=== PATIENT | female | born 1975 | race Caucasian/White ===

== ENCOUNTER 2016-09-21 08:11 | Inpatient (IN) | payer OTHER ==
[~2016-09-21] VITALS: Ht 157.5 cm; Wt 134.5 kg
[~2016-09-21 08:11] MED LIST: ENDOCET 5-3251 EACH PO; IBUPROFEN800 MG PO; LABETALOL HCL200 MG PO; NOHOMEMEDS; PRENATAL TABLE1 EAC3 PO
[2016-09-21 09:22] LABS: EOSINOPHIL (%) 1.1 % (0-5); EOSINOPHIL COUNT 0.1 K/uL (0-0.3); HEMATOCRIT 42.3 % (36.0-46.0); IMMATURE GRANULOCYTE (%) 0.4 % (0.0-0.7); INSTRUMENT ABS NEUTROPHIL CT 7.5 K/uL; LYMPHOCYTE COUNT 1.1 K/uL (1.0-2.8); MCH 30.6 PG (29.0-34.0); MCHC 32.2 G/DL (30.0-36.0); MCV 95.3 FL (83-99); MEAN PLAT.VOLUME 11.9 uM^3 (9.5-12.4); MONOCYTE COUNT 0.5 K/uL (0-0.8); NEUTROPHIL COUNT 7.5 K/uL (1.8-6.4); PLATELET COUNT 184 K/uL (156-360); RBC DIS.WIDTH-CV 12.8 % (11.8-14.6); RBC DIS.WIDTH-SD 45.4 % (39-53); RED BLOOD COUNT 4.44 M/uL (3.80-5.20); WHITE BLOOD COUNT 9.3 K/uL (4.1-10.2)
[2016-09-21 09:34] LABS: D-DIMER ELISA 3.77 mg/L FEU (< 0.57); INTER. NORMALIZED RATIO 1.1; PROTHROMBIN TIME 10.8 (9.2-11.2); PTT 36.2 (25-32)
[2016-09-21 09:41] LABS: CHLORIDE 105 mEq/L (99-109); POTASSIUM 3.8 mEq/L (3.7-5.4); SODIUM 137 mEq/L (136-147)
[2016-09-21 09:43] LABS: GLUCOSE 125 mg/dL (70-99)
[2016-09-21 09:45] LABS: ANION GAP 10 MEQ/L (2-14)
[2016-09-21 09:47] LABS: GFR ESTIMATE (CALCULATED) > 59 mL/min/
[2016-09-21 09:48] LABS: UREA NITROGEN (BUN) 8 mg/dL (9-23)
[2016-09-21 09:51] LABS: TROP-I INTERPRETATION NEGATIVE; TROPONIN-I 0.08 ng/mL (0.0-0.30)
[2016-09-21] MEDS ORDERED: PROAIR HFA8.5 GM IH (12:29)
[2016-09-21 14:31] VITALS: BP 141/77
[2016-09-22 01:00] VITALS: BP 127/87
[2016-09-22 04:00] VITALS: BP 134/86
[2016-09-22 07:24] LABS: EOSINOPHIL (%) 1.1 % (0-5); EOSINOPHIL COUNT 0.1 K/uL (0-0.3); HEMATOCRIT 41.6 % (36.0-46.0); IMMATURE GRANULOCYTE (%) 0.4 % (0.0-0.7); INSTRUMENT ABS NEUTROPHIL CT 4.6 K/uL; LYMPHOCYTE COUNT 2.3 K/uL (1.0-2.8); MCH 29.9 PG (29.0-34.0); MCHC 31.5 G/DL (30.0-36.0); MONOCYTE COUNT 0.5 K/uL (0-0.8); NEUTROPHIL (%) 61.4 % (45-76); NEUTROPHIL COUNT 4.6 K/uL (1.8-6.4); PLATELET COUNT 193 K/uL (156-360); RBC DIS.WIDTH-CV 13.2 % (11.8-14.6); RBC DIS.WIDTH-SD 46.6 % (39-53); RED BLOOD COUNT 4.38 M/uL (3.80-5.20); WHITE BLOOD COUNT 7.5 K/uL (4.1-10.2)
[2016-09-22 07:35] VITALS: BP 121/73
[2016-09-22 07:43] LABS: INTER. NORMALIZED RATIO 1.1; PROTHROMBIN TIME 11.1 (9.2-11.2); PTT 54.8 (25-32)
[2016-09-22 07:48] LABS: ANION GAP 9 MEQ/L (2-14); CHLORIDE 105 MEQ/L (99-109); GFR ESTIMATE (CALCULATED) > 59 mL/min/; GLUCOSE 109 mg/dL (70-99); POTASSIUM 3.9 MEQ/L (3.7-5.4); SAMPLE HEMOLYSIS CHECK 0; SAMPLE ICTERIC CHECK 0; SAMPLE LIPEMIA CHECK 0; SODIUM 137 MEQ/L (136-147); UREA NITROGEN (BUN) 9 mg/dL (9-23)
[2016-09-22 11:45] VITALS: BP 147/89
[2016-09-22 16:45] VITALS: BP 118/83
[2016-09-22 21:10] VITALS: BP 149/75
[2016-09-23 01:37] VITALS: BP 116/73
[2016-09-23 04:16] VITALS: BP 112/64
[2016-09-23 09:45] VITALS: BP 123/72
[2016-09-23 12:00] VITALS: BP 138/74
[2016-09-23] MEDS ORDERED: ELIQUIS5 MG PO (16:48)
[2016-09-23] MEDS ORDERED: TYLENOL REGULA325 MG PO (16:49)
[2016-09-23 17:09] VITALS: BP 140/72
[2016-09-25 11:32] LABS: DRVVT Mixing Study Interp Not Indicated (()); PROTEIN C FUNCTIONAL ACTIVITY+ 113 % (70-180); PTT-LA >200 sec (<=40); PTT-LA Reflex Has been added (()); Protein S, Free 101 % normal (50-147); Thrombosis Consult Level Limited (()); dRVVT Screen 36 sec (<=45)
[2016-09-28 11:07] LABS: ANTITHROMBIN III ACTIVITY+ 110 % activi (80-120); THROMBIN TIME+ >100 (H) sec
== END 2016-09-23 18:05 | disposition home or self-care (01) | DRG 176 ==
LOC: EME 08:11 → 4EAST 12:38 → EDOF 12:38 → 4EAST 14:01
PROVIDERS: Emergency Medicine; Internal Medicine; Internal Medicine Pulmonary Disease
DX: I26.99 Other pulmonary embolism without acute cor pulmonale (principal); I82.442 Acute embolism and thrombosis of left tibial vein; E66.01 Morbid (severe) obesity due to excess calories; Z68.32 Body mass index [BMI] 32.0-32.9, adult; J45.20 Mild intermittent asthma, uncomplicated; I10 Essential (primary) hypertension; Z79.01 Long term (current) use of anticoagulants
CPT/HCPCS: 71010; 71275; 80048; 81240 90; 83090 90; 83880; 84484; 85025; 85240 90; 85300 90; 85303 90; 85305 90; 85306 90; 85307 90; 85379; 85610; 85613 90; 85670 90; 85730; 85730 90; 86146 90; 86147 90; 93005; 93306; 93970; 99281; 99285